=== PATIENT | female | born 2000 | race Caucasian/White ===

== ENCOUNTER 2021-08-23 23:01 | Emergency (ER) | payer OTHER ==
[~2021-08-23 23:01] MED LIST: BACITRAYCIN PLU28 GM TP; HYDROCODON-ACE1 EAC2 PO; IBUPROFEN600 MG PO; NORFLEX 100 MG100 MG PO; PRENATAL VITAM1 EAC5 PO; PROVENTIL HFA6.7 GM INH; TESSALON PERLE100 MG PO
[2021-08-23 23:41] LABS: HEMOGLOBIN 14.9 gm/dl (12.3-15.3); RED BLOOD COUNT 4.89 M/UL (4.00-5.10); WHITE BLOOD COUNT 21.7 K/UL (4.5-11.0)
[2021-08-24 00:08] LABS: BUN/CREATININE RATIO 19 (0-10)
[2021-08-24] MEDS ORDERED: PROVENTIL HFA6.7 GM INH (02:13)
== END 2021-08-24 02:20 | disposition home or self-care (01) ==
LOC: ER1 23:01
PROVIDERS: Student in an Organized Health Care Education/Training Program
DX: R55 Syncope and collapse (principal); J45.909 Unspecified asthma, uncomplicated; Z20.822 Contact with and (suspected) exposure to COVID-19
CPT/HCPCS: 0240U; 71045; 80053; 82550; 82553; 84484; 85025; 93005; 94664; 94760; 99284